=== PATIENT | female | born 1995 | race American Indian/Alaskan Native ===

== ENCOUNTER 2017-05-29 09:20 | Emergency (ER) | payer OTHER ==
[~2017-05-29] VITALS: Ht 162.6 cm; Wt 92.1 kg
[~2017-05-29 09:20] MED LIST: HYCET 7.5 MG-3473 ML PO; IBUPROFEN200 MG PO; IBUPROFEN600 MG PO; LEVSIN-SL0.125 MG SL; LISINOPRIL10 MG PO; MULTIVITAMINS1 EAC8 PO; OMEPRAZOLE20 MG PO; PROMETHAZINE HC25 M1 PO; ZOFRAN ODT4 MG PO
[2017-05-29] MEDS ORDERED: VITAMIN D250000 UNIT PO (09:30)
[2017-05-29] MEDS ORDERED: PNV PRENATAL P1 EACH PO (09:31)
[2017-05-29] MEDS ORDERED: ZOFRAN ODT8 MG PO (12:53)
== END 2017-05-29 13:05 | disposition home or self-care (01) ==
LOC: ED 09:20
DX: O21.9 Vomiting of pregnancy, unspecified (principal); O99.331 Smoking (tobacco) complicating pregnancy, first trimester; F17.200 Nicotine dependence, unspecified, uncomplicated; Z90.49 Acquired absence of other specified parts of digestive tract; Z88.1 Allergy status to other antibiotic agents; Z79.899 Other long term (current) drug therapy; Z3A.08 8 weeks gestation of pregnancy
CPT/HCPCS: 76801; 76817; 81001; 87210; 87491; 87591; 99284

== ENCOUNTER 2017-06-05 17:54 | Emergency (ER) | payer OTHER ==
[~2017-06-05] VITALS: Ht 162.6 cm; Wt 90.7 kg
[~2017-06-05 17:54] MED LIST changes: +PNV PRENATAL P1 EACH PO; +VITAMIN D250000 UNIT PO; +ZOFRAN ODT8 MG PO
== END 2017-06-05 20:34 | disposition home or self-care (01) ==
LOC: ED 17:54
DX: O20.9 Hemorrhage in early pregnancy, unspecified (principal); Z3A.08 8 weeks gestation of pregnancy; O99.331 Smoking (tobacco) complicating pregnancy, first trimester; F17.200 Nicotine dependence, unspecified, uncomplicated; Z88.1 Allergy status to other antibiotic agents; Z98.890 Other specified postprocedural states; Z79.899 Other long term (current) drug therapy
CPT/HCPCS: 81001; 84702; 86900; 86901; 94640; 99283

== ENCOUNTER 2018-01-04 05:29 | Inpatient (IN) | payer OTHER ==
--- NOTE | ~2018-01-04 | OR ---
[facility] [address] [place] [id number] Draft DATE OF OPERATION: 01/04/2018 SURGEON: Jules Duque DO PREOPERATIVE DIAGNOSES: 1. Term delivered. 2. bleeding. 3. Preeclampsia with severe features. 4. Obesity. 5. Tobacco use. POSTOPERATIVE DIAGNOSES: 1. Term delivered. 2. bleeding. 3. Preeclampsia with severe features. 4. Obesity. 5. Tobacco use. PROCEDURES PERFORMED: 1. Exam under anesthesia. 2. Repair of obstetrical laceration 2nd degree. LEAD PRESSMAN: Bull Walls MD ANESTHESIA: General. ESTIMATED BLOOD LOSS: 100 mL during the procedure and approximately 900 mL in total including the delivery. SPECIMENS: None. FINDINGS: Second-degree perineal laceration previously repaired with continued bleeding from the repair site. The cervix and upper vagina were examined and found to be free of laceration or bleeding. The uterine fundus is firm with minimal uterine bleeding noted. No retained products of conception. There is an intact rectal mucosa and sphincter. Hemostasis at the end of procedure. PATIENT NAME: RIHCARD MEHTA OPERATIVE REPORT DATE OF : [birth year] REPORT #: [id number] PHYSICIAN: JULES DUQUE DO PCP: DEJA DELONG MD REPORT IS CONFIDENTIAL AND NOT TO BE RELEASED WITHOUT AUTHORIZATION [address] [address] Draft COMPLICATIONS: None. INDICATIONS: Ms. Lopez is a pleasant 22-year-old G1, now P1 female who delivered earlier this morning via vacuum-assisted operative delivery for terminal bradycardia. She also had an episiotomy. She had a precipitous delivery and was unable to receive an epidural. Second-degree perineal laceration was noted at delivery and was repaired in the standard fashion. The patient was very uncomfortable during the repair. However, it appeared to be hemostatic at the end of the procedure. , the patient had severe blood pressures and was diagnosed with preeclampsia with severe features. Her blood pressure was corrected with IV labetalol and the uterine fundus remained firm. The patient did have approximately 300 mL of additional bright red bleeding and on exam, it appears that this is coming from the perineal laceration site. Decision was made to take the patient for exam under anesthesia and possible repair of obstetrical laceration. Risks, benefits, and alternatives were discussed in detail with the patient. The patient understands and wishes to proceed with the procedure. TECHNIQUE: The patient was taken to the operating room where a time-out was performed for correct patient and correct procedure. General anesthesia was adequately established. The patient was prepped and draped in the dorsal lithotomy position with her feet in Yellofin stirrups. ICPs were on and running and the patient received Ancef 2 g preoperatively. No heparin was indicated. Exam of the perineum, vagina, and cervix was performed using ring forceps to examine the cervix circumferentially. No upper general tract infections, lacerations, or bleeding were noted. The fundus was firm and there was a small amount of clot noted in the uterus. This appeared to be normal post bleeding. Some brisk bleeding was noted from the obstetrical laceration site and the previous sutures were removed using surgical scissors. The rectal exam was performed and no rectal mucosal laceration was noted and the sphincter is well intact. Several small bleeding vessels were noted and these were grasped with hemostats, elevated and ligated using 3-0 Vicryl repeated with good hemostasis. The incision was rinsed with saline and the vast majority of the bleeding was noted to be hemostatic. The perineal laceration was then repaired in several layers, 1st reapproximating the deep tissue with 3-0 Vicryl in a running locked suture. Then, a standard second-degree perineal laceration repair was performed starting in the vaginal mucosa and carrying down through the perineal body. Good hemostasis was appreciated and a small amount of Anna powder was also used. At the conclusion of the repair, a small amount of bleeding was noted just at the hymenal ring in the midline at 6 o'clock. This was grasped with an Allis clamp, elevated, and ligated with a [id number] 2-0 Vicryl with good hemostasis. Rectal exam was again performed. The rectal mucosa was smooth without foreign body or PATIENT NAME: RICHARD MEHTA OPERATIVE REPORT DATE OF : [birth year] REPORT #: [id number] PHYSICIAN: JULES DUQUE DO PCP: DEJA DELONG MD REPORT IS CONFIDENTIAL AND NOT TO BE RELEASED WITHOUT AUTHORIZATION [facility] [address] [place] [id number] Draft suture in this. No additional uterine bleeding was noted. The patient was taken to PACU in good and stable condition. Crystalloid was replaced in a 3-1 ratio and blood pressure was well controlled throughout the procedure. Sponge and instrument count were correct x2 at the end of the procedure. Dr. Walls was present, participated in all portions of the procedure. Jules Duque DO JDW/MODL /[id number] Copies: ~ PATIENT NAME: RICHARD MEHTA OPERATIVE REPORT DATE OF : [birth year] REPORT #: [id number] PHYSICIAN: JULES DUQUE DO PCP: DEJA DELONG MD REPORT IS CONFIDENTIAL AND NOT TO BE RELEASED WITHOUT AUTHORIZATION
--- NOTE | 2018-01-04 10:48 | NUR ---
01/04/18 1048 Millie Bello 1036 PATIENT ARRIVES TO PACU SLEEPING, AWAKENS WITH VERBAL STIMULI. DENIES PAIN OR NAUSEA, THEN BACK TO SLEEP. RESP EVEN AND UNLABORED, MASK AT 6 LITERS, SATS 100%. 1045 PATIENT AWAKE OFF/ON, "FEELS CONFUSED." RESP EVEN AND UNLABORED. OXYGEN OFF, SATS 99%. TALKING WITH DR LAGUERRE.
--- NOTE | 2018-01-05 09:31 | PR ---
[facility] [address] [facility] [place], [place] [address] Signed PP Progress Notes Datetime Report Generated by CPN: 01/05/2018 09:31 SUBJECTIVE: [id number] Pain: Within normal limits Pain Comments: feels woozy with the mag Nausea/Vomiting: Denies Vital Signs: [id number] Vital Signs: Reviewed; Within Normal Limits Notable Details: HTN resolved EXAM: [id number] Cardiovascular: Normal Respiratory: Normal Abdomen/Uterus: Abnormal Lochia: Normal Vulva/Perineum: Normal Breasts: Not Done CVA Tenderness: Not Done Extremities: Normal Incision: Not Applicable Progress: Abnormal Exam Comments: Fundus firm, NT @ U-1. H/H .6, WBC 21.8, plat 318k IMPRESSION/PLAN/PROCEDURES: [id number] Impression: Normal progression Other Impression: HTN/Preeclampsia much improved Other Plans: Stop mag, D/C corrales, D/C IVF Progress Notes: Much improved. Will D/C mag and corrales and begin ambulation. Signing Physician: Kaity Almaguer MD Copies: ~ *Electronically Signed* 01/05/18 0931 KAITY ALMAGUER MD PATIENT NAME: RICHARD MEHTA PROGRESS NOTE DATE OF : [birth year] PHYSICIAN: KAITY ALMAGUER MD RPT #: [id number] REPORT IS CONFIDENTIAL AND NOT TO BE RELEASED WITHOUT AUTHORIZATION
--- NOTE | 2018-01-06 09:58 | PR ---
[facility] [address] [facility] [place], [place] [address] Signed PP Progress Notes Datetime Report Generated by CPN: 01/06/2018 09:58 SUBJECTIVE: [id number] Pain: Within normal limits Pain Comments: feels woozy with the mag Nausea/Vomiting: Denies Vital Signs: [id number] Vital Signs: Reviewed Notable Details: intermittent HTN EXAM: [id number] Cardiovascular: Not Done Respiratory: Not Done Abdomen/Uterus: Abnormal Lochia: Normal Vulva/Perineum: Not Done Breasts: Not Done CVA Tenderness: Not Done Extremities: Normal Incision: Not Applicable Progress: Abnormal Exam Comments: Fundus firm, NT @ U-1. IMPRESSION/PLAN/PROCEDURES: [id number] Impression: Normal progression Other Impression: HTN/Preeclampsia much improved Plan: Discharge Other Plans: Stop mag, D/C corrales, D/C IVF Procedures: None Progress Notes: Doing well. She is ready for D/C. Signing Physician: Kaity Almaguer MD Copies: ~ *Electronically Signed* 01/06/18 0958 KAITY ALMAGUER MD PATIENT NAME: RICHARD MEHTA GABO MAURICE PROGRESS NOTE DATE OF : [birth year] PHYSICIAN: KAITY ALMAGUER MD RPT #: [id number] REPORT IS CONFIDENTIAL AND NOT TO BE RELEASED WITHOUT AUTHORIZATION
== END 2018-01-06 12:25 | disposition home or self-care (01) | DRG 774 ==
LOC: FBCO 05:29 → FBC 05:35
PROVIDERS: Obstetrics & Gynecology; ADMIT Obstetrics & Gynecology
PROC: 0W8NXZZ Division of Female Perineum, External Approach (ICD-10-PCS; 2018-01-04)
PROC: 10D07Z6 Extraction of Products of Conception, Vacuum, Via Natural or Artificial Opening (ICD-10-PCS; principal; 2018-01-04 10:00)
PROC: 0KQM0ZZ Repair Perineum Muscle, Open Approach (ICD-10-PCS; 2018-01-04 10:00)
DX: O14.14 Severe pre-eclampsia complicating childbirth (principal); O10.92 Unspecified pre-existing hypertension complicating childbirth; O62.3 Precipitate labor; O99.214 Obesity complicating childbirth; E66.9 Obesity, unspecified; O99.334 Smoking (tobacco) complicating childbirth; F17.210 Nicotine dependence, cigarettes, uncomplicated; O72.1 Other immediate postpartum hemorrhage; O76 Abnormality in fetal heart rate and rhythm complicating labor and delivery; O70.1 Second degree perineal laceration during delivery; O99.324 Drug use complicating childbirth; F12.90 Cannabis use, unspecified, uncomplicated; Z88.0 Allergy status to penicillin; Z37.0 Single live birth; Z3A.37 37 weeks gestation of pregnancy
CPT/HCPCS: 00942; 36415; 80053; 82570; 82803; 83735; 84156; 84550; 85025; 85027; 85384; 85610; 85730; 86850; 86900; 86901; 94640; J0330; J0690; J1100; J1885; J2250; J2405; J2550; J2590; J2704; J2765; J3010; J3475; J7120

== ENCOUNTER 2020-04-07 10:17 | Emergency (ER) | payer OTHER ==
[~2020-04-07] VITALS: Ht 162.6 cm; Wt 99.8 kg
--- NOTE | 2020-04-09 09:24 | PATH ---
[facility] [place] [facility] [address] [place], [place] [address] Signed SPECIMEN(S): A PRODUCTS OF CONCEPTION SPECIMEN SOURCE: A. PRODUCTS OF CONCEPTION CLINICAL HISTORY: Vaginal bleeding. Miscarriage 9 weeks gestation by dates. Last known period 01/10/2020. Products of conception. FINAL PATHOLOGIC DIAGNOSIS: Products of conception: - tissue, immature chorionic villi, and immature membranes, consistent with products of conception. NAL:cml:C2NR MICROSCOPIC EXAMINATION: Histologic sections of all submitted blocks are examined by light microscopy. These findings, together with the gross examination, support the pathologic diagnosis. GROSS DESCRIPTION: The specimen, labeled ", products of conception," is received in formalin and consists of one piece of pink-martinez, fibromembranous, cystic-like piece of tissue that measures 3.5 x 1.8 x 1.4 cm. Sectioning through the specimen reveals possible tissue that measures 1.0 cm in greatest dimension, surrounded with a clear fluid. Bradley Linebacker Crewmember sections are submitted in cassette (A1). JS (under the direct supervision of a pathologist) The Gross Description was prepared using a voice recognition system. The report was reviewed for accuracy; however, sound-alike word errors, addition and/or deletions may occur. If there is any question about this report, please contact Client Services. PERFORMING LABORATORY: The technical component was performed by [facility], [address] [place] [id number] (Parts And Service Manager: Tayler Wade MD; CLIA# [id number]). Professional interpretation was performed by [facility], [address] [address] (CLIA# [id number]). Diagnostician: Flor Jovel MD PATIENT NAME: RICHARD MEHTA PATHOLOGY DATE OF : [birth year] REPORT #: [id number] PHYSICIAN: [facility] PCP: [facility] REPORT IS CONFIDENTIAL AND NOT TO BE RELEASED WITHOUT AUTHORIZATION [address] [address] Signed Pathologist Electronically Signed 04/08/2020 Copies: ~ PATIENT NAME: RICHARD MEHTA PATHOLOGY DATE OF : [birth year] REPORT #: [id number] PHYSICIAN: [facility] PCP: [facility] REPORT IS CONFIDENTIAL AND NOT TO BE RELEASED WITHOUT AUTHORIZATION
== END 2020-04-07 13:10 | disposition home or self-care (01) ==
LOC: ED 10:17
DX: O03.9 Complete or unspecified spontaneous abortion without complication (principal); F17.200 Nicotine dependence, unspecified, uncomplicated; Z88.0 Allergy status to penicillin
CPT/HCPCS: 76815; 80048; 84702; 85025; 86900; 86901; 99284-25

== ENCOUNTER 2021-05-17 11:45 | Emergency (ER) | payer OTHER ==
[~2021-05-17] VITALS: Ht 162.6 cm; Wt 99.8 kg
== END 2021-05-17 13:13 | disposition home or self-care (01) ==
LOC: ED 11:45
DX: S83.91XA Sprain of unspecified site of right knee, initial encounter (principal); I10 Essential (primary) hypertension; J45.909 Unspecified asthma, uncomplicated; F17.200 Nicotine dependence, unspecified, uncomplicated; X50.1XXA Overexertion from prolonged static or awkward postures, initial encounter; Z88.0 Allergy status to penicillin
CPT/HCPCS: 73560; 99283-25

== ENCOUNTER 2022-03-01 23:42 | Emergency (ER) | payer OTHER ==
[~2022-03-01] VITALS: Ht 162.6 cm; Wt 99.8 kg
--- NOTE | 2022-03-02 20:40 | EKG ---
[facility] [address] [facility] [place], [place] [address] Signed Normal sinus rhythm Nonspecific ST abnormality Abnormal ECG No previous ECGs available Confirmed by NEMESIO SILVA MD ([id number]) on 03/02/2022 8:40:18 PM Electronically Signed By: NEMESIO SILVA MD 03/02/222039 PATIENT NAME: RICHARD MEHTA Electrocardiogram DATE OF : [birth year] PHYSICIAN: NEMESIO SILVA MD REPORT #: [id number] REPORT IS CONFIDENTIAL AND NOT TO BE RELEASED WITHOUT AUTHORIZATION
== END 2022-03-02 08:48 | disposition home or self-care (01) ==
LOC: ED 23:42
DX: T39.312A Poisoning by propionic acid derivatives, intentional self-harm, initial encounter (principal); I10 Essential (primary) hypertension; F17.200 Nicotine dependence, unspecified, uncomplicated; Z88.0 Allergy status to penicillin; Z20.822 Contact with and (suspected) exposure to COVID-19
CPT/HCPCS: 36415; 80048; 80053; 81001; 84443; 84484; 84703; 85025; 87502; 93005; 93010; G0480; J1200; J1630; J2060; J7030; U0003

== ENCOUNTER 2022-05-06 07:29 | Emergency (ER) | payer OTHER ==
[~2022-05-06] VITALS: Ht 162.6 cm; Wt 99.8 kg
[2022-05-06] MEDS ORDERED: HYDROXYZINE PAM25 MG PO (07:50)
[2022-05-06] MEDS ORDERED: LAMOTRIGINE100 MG PO (07:50)
== END 2022-05-06 09:16 | disposition home or self-care (01) ==
LOC: ED 07:29
DX: J45.909 Unspecified asthma, uncomplicated (principal); R11.2 Nausea with vomiting, unspecified; I10 Essential (primary) hypertension; F17.200 Nicotine dependence, unspecified, uncomplicated; Z88.8 Allergy status to other drugs, medicaments and biological substances; Z79.899 Other long term (current) drug therapy
CPT/HCPCS: 36415; 80053; 83690; 85025; 94640; 94664; 96361; 96374; 99285-25; J2405; J7030

== ENCOUNTER 2022-09-03 05:24 | Emergency (ER) | payer OTHER ==
[~2022-09-03] VITALS: Ht 162.6 cm; Wt 99.8 kg
[~2022-09-03 05:24] MED LIST changes: +HYDROXYZINE PAM25 MG PO; +LAMOTRIGINE100 MG PO
[2022-09-03] MEDS ORDERED: CLONIDINE HCL0.1 MG PO (05:30)
[2022-09-03] MEDS ORDERED: ONDANSETRON ODT8 MG PO (08:27)
[2022-09-03] MEDS ORDERED: PROMETHAZINE HC25 M1 PO (10:05)
== END 2022-09-03 10:25 | disposition home or self-care (01) ==
LOC: ED 05:24
DX: R10.13 Epigastric pain (principal); I10 Essential (primary) hypertension; J45.909 Unspecified asthma, uncomplicated; F17.200 Nicotine dependence, unspecified, uncomplicated; Z20.822 Contact with and (suspected) exposure to COVID-19; Z88.0 Allergy status to penicillin; Z79.899 Other long term (current) drug therapy
CPT/HCPCS: 36415; 74177; 76705; 80053; 81003; 83690; 84703; 85025; 87502; 96375; 96376; 99284-25; C9803; J2270; J2405; J7030; Q9967; U0003

== ENCOUNTER 2022-10-29 06:30 | Emergency (ER) | payer OTHER ==
[~2022-10-29] VITALS: Ht 162.6 cm; Wt 108.7 kg
[~2022-10-29 06:30] MED LIST changes: +CLONIDINE HCL0.1 MG PO; +ONDANSETRON ODT8 MG PO
== END 2022-10-29 08:20 | disposition home or self-care (01) ==
LOC: ED 06:30
DX: R51.9 Headache, unspecified (principal); I10 Essential (primary) hypertension; J45.909 Unspecified asthma, uncomplicated; F17.200 Nicotine dependence, unspecified, uncomplicated; Z88.0 Allergy status to penicillin; Z79.899 Other long term (current) drug therapy
CPT/HCPCS: 36415; 80053; 83735; 84703; 85025; 96361; 96374; 96375; 99284-25; J1200; J1885; J2405; J2765; J7040

== ENCOUNTER 2023-09-07 07:37 | Emergency (ER) | payer OTHER ==
[~2023-09-07] VITALS: Ht 162.6 cm; Wt 113.2 kg
[~2023-09-07 07:37] MED LIST changes: +LAMOTRIGINE25 M3
[2023-09-07] MEDS ORDERED: VENTOLIN HFA18 GM INH (07:46)
[2023-09-07] MEDS ORDERED: ondansetron HCL 4 MG/2 ML VIAL IV ONE (08:00)
[2023-09-07 08:05] LABS: HEMATOCRIT 43.3 % (35.0-50.0); HEMOGLOBIN 14.4 g/dL (12.0-18.0); MCH 27.4 (27-36); MCHC 33.1 g/dl (30-36); MCV 82.7 fl (81-99); RBC 5.24 M/ul (4.3-5.7)
[2023-09-07] MEDS ORDERED: METOCLOPRAMIDE HCL 10 MG/2 ML SDV IV ONE (08:15)
[2023-09-07] MEDS ORDERED: KETOROLAC TROMETHAMINE 30 MG/ML VIAL IV ONE (08:15)
[2023-09-07] MEDS ORDERED: diphenhydrAMINE HCL 50 MG/ML VIAL IV ONE (08:15)
[2023-09-07] MEDS ORDERED: SODIUM CHLORIDE 0.9% 1,000 ML IV PRN (08:15)
[2023-09-07 08:18] LABS: ALBUMIN 3.9 g/dL (3.4-5.0); ALBUMIN/GLOBULIN RATIO 0.91 (1.1-2.4); ANION GAP 14.7 (7-21); BILIRUBIN, TOTAL 0.3 ng/dL (0.2-1.0); BUN/CREATININE RATIO 10.98 (6.0-28.6); CALCIUM 9.5 mg/dL (8.5-10.1); CREATININE, SERUM 0.91 mg/dL (0.55-1.02); POTASSIUM 3.7 mmol/L (3.5-5.1); PROTEIN, TOTAL 8.2 g/dL (6.4-8.2)
[2023-09-07 08:28] LABS: BANDS, MANUAL DIFF 1; BASOPHILS, MANUAL DIFF 1; EOSINOPHILS, MANUAL DIFF 3; LYMPHOCYTES, MANUAL DIFF 51; MONOCYTES, MANUAL DIFF 4; NEUTROPHILS, MANUAL DIFF 40
[2023-09-07] MEDS ORDERED: ALBUTEROL/IPRATROPIUM 3 ML NEB INH ONE (08:30)
[2023-09-07 09:03] LABS: BILIRUBIN, URINE NEGATIVE (negative); BLOOD/HGB, URINE NEGATIVE (Negative); KETONE, URINE NEGATIVE (Negative); LEUK ESTERASE, URINE NEGATIVE (negative); NITRITE, URINE NEGATIVE (negative); PH, URINE 5.5 (5-7)
[2023-09-11 09:09] LABS: PLATELET COUNT 387 K/uL (140-440)
== END 2023-09-07 09:35 | disposition home or self-care (01) ==
LOC: ED 07:37
PROVIDERS: Emergency Medicine
DX: G43.909 Migraine, unspecified, not intractable, without status migrainosus (principal); D72.820 Lymphocytosis (symptomatic); F17.200 Nicotine dependence, unspecified, uncomplicated; I10 Essential (primary) hypertension; J45.909 Unspecified asthma, uncomplicated; F31.9 Bipolar disorder, unspecified; Z79.899 Other long term (current) drug therapy; Z88.0 Allergy status to penicillin
CPT/HCPCS: 36415; 80053; 81003; 84703; 85025; 94640; 96361; 96374; 96375; 99284-25; J1200; J1885; J2405; J2765; J7030

== ENCOUNTER 2024-05-11 09:28 | Emergency (ER) | payer OTHER ==
[~2024-05-11] VITALS: Ht 162.6 cm; Wt 110.8 kg
[~2024-05-11 09:28] MED LIST changes: +VENTOLIN HFA18 GM INH
[2024-05-11] MEDS ORDERED: COMBIVENT RESPIM4 GM INH (09:38)
[2024-05-11] MEDS ORDERED: KETOROLAC TROMETHAMINE 30 MG/ML VIAL IV ONE (10:00)
[2024-05-11] MEDS ORDERED: diphenhydrAMINE HCL 50 MG/ML VIAL IV ONE (10:00)
[2024-05-11] MEDS ORDERED: METOCLOPRAMIDE HCL 10 MG/2 ML SDV IV ONE (10:00)
[2024-05-11] MEDS ORDERED: LORazepam 2 MG/ML VIAL IV ONE (10:00)
[2024-05-11] MEDS ORDERED: ondansetron HCL 4 MG/2 ML VIAL IV ONE (10:00)
[2024-05-11] MEDS ORDERED: SODIUM CHLORIDE 0.9% 1,000 ML IV PRN (10:00)
[2024-05-11] MEDS ORDERED: KETOROLAC TROME10 MG PO (11:03)
[2024-05-11] MEDS ORDERED: ONDANSETRON ODT8 MG PO (11:03)
[2024-05-11 11:29] VITALS: BP 148/95
== END 2024-05-11 11:30 | disposition home or self-care (01) ==
LOC: ED 09:28
DX: G43.909 Migraine, unspecified, not intractable, without status migrainosus (principal); I10 Essential (primary) hypertension; F17.200 Nicotine dependence, unspecified, uncomplicated; Z88.0 Allergy status to penicillin
CPT/HCPCS: 96374; 96375; 99283-25; J1200; J1885; J2060; J2405; J2765; J7030

== ENCOUNTER 2025-03-31 11:58 | Emergency (ER) | payer OTHER ==
[~2025-03-31] VITALS: Ht 162.6 cm; Wt 106.1 kg
[~2025-03-31 11:58] MED LIST changes: +COMBIVENT RESPIM4 GM INH; +KETOROLAC TROME10 MG PO; +REGLAN10 MG PO; +SUMATRIPTAN SU100 MG PO
[2025-03-31] MEDS ORDERED: LORazepam 2 MG/ML VIAL IV ONE (14:30)
[2025-03-31] MEDS ORDERED: METOCLOPRAMIDE HCL 10 MG/2 ML SDV IV ONE (14:30)
[2025-03-31] MEDS ORDERED: KETOROLAC TROMETHAMINE 30 MG/ML VIAL IV ONE (14:30)
[2025-03-31] MEDS ORDERED: SODIUM CHLORIDE 0.9% 1,000 ML IV ONE (14:30)
[2025-03-31] MEDS ORDERED: REGLAN10 MG PO (16:12)
[2025-03-31 16:22] VITALS: BP 151/92
== END 2025-03-31 16:22 | disposition home or self-care (01) ==
LOC: ED 11:58
DX: G43.909 Migraine, unspecified, not intractable, without status migrainosus (principal); I10 Essential (primary) hypertension; F17.200 Nicotine dependence, unspecified, uncomplicated; Z88.0 Allergy status to penicillin
CPT/HCPCS: 96374; 96375; 99283-25; J1200; J1885; J2060; J2405; J2765; J7030